=== PATIENT | male | born 2000 | race Hispanic/Latino ===

== ENCOUNTER 2022-03-12 20:20 | Emergency (ER) | payer SELFPAY ==
[~2022-03-12] VITALS: Ht 185.4 cm; Wt 93.9 kg
[2022-03-12 20:53] VITALS: BP 117/69
== END 2022-03-12 20:53 | disposition home or self-care (01) ==
LOC: FSED 20:28
DX: S00.81XA Abrasion of other part of head, initial encounter (principal); R51.9 Headache, unspecified; W20.8XXA Other cause of strike by thrown, projected or falling object, initial encounter; Y92.096 Garden or yard of other non-institutional residence as the place of occurrence of the external cause
CPT/HCPCS: 99282